=== PATIENT | male | born 1965 | race Two or more races ===

== ENCOUNTER 2023-03-11 23:23 | Emergency (ER) | payer MEDICAID, SELFPAY ==
[2023-03-11 23:27] VITALS: BP 110/85; PULSE 87; RESP 17; TEMP 36.9; O2SAT 95; BMI 54.6
--- NOTE | 2023-03-11 23:50 | ED.EXTPRO1 ---
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 The patient is on Lasix and lisinopril with HCTZ. He states that he was on an antibiotic approximately one month ago for cellulitis of the lower extremities. He states that he spends approximately 8 hours a day driving and his legs continued to swell while he is driving. He has limited time to elevate his legs and rest. He states that when he left home 5 days ago his legs were normal but have now been increasingly swollen with the drainage and serosanguineous weeping from his left leg. He denies any fever. He has no chest pain or shortness of breath. He has not had any recent injury. He does have a healed fasciotomy scar on the right lower leg after having compartment syndrome in the past. Related Data Home Medications Medication Instructions Recorded Confirmed furosemide 20 mg tablet (Lasix) 20 mg PO BID 03/11/23 03/11/23 lisinopril 20 mg tablet 20 mg PO DAILY 03/11/23 03/11/23 metformin 500 mg tablet 500 mg PO BID 03/11/23 03/11/23 Allergies Allergy/AdvReac Type Severity Reaction Status Date / Time No Known Drug Allergies Allergy Verified 03/11/23 23:33 Review of Systems ROS Status of ROS 10 or more systems reviewed and unremarkable except as noted in history and below PFSH PFS Social History Smoking status: Current every day smoker Exam Narrative Exam Narrative: Nurses note and vital signs reviewed and patient is not hypoxic. General: Non toxic, morbidly obese adult male, no resp distress Skin: Warm, dry, no pallor noted. see description of lower ext in musculoskeletal section Head: Normocephalic, atraumatic Eye: Normal conjunctiva, no drainage, EOMI. PERRL Ears, Nose, Mouth, and Throat: oral mucosa is moist. Cardiovascular: Regular Rate and Rhythm S1S2, no murmurs, rubs or gallops Respiratory: Patient is in no distress, no accessory muscle use, faint expiratory wheezing bilaterally Back: non-tender, no CVA tenderness bilaterally to percussion. GI: Normal bowel sounds, no tenderness to palpation, no masses appreciated. No rebound, guarding, or rigidity noted. Musculoskeletal: There are chronic hypertrophic skin changes on both lower extremities from the knees to the toes, both legs are markedly edematous and tense, there is approximately 6 x 6 area of open tripathi colored skin on the lateral aspect of the left lower leg with serosanguineous drainage. There is also tender to palpation. Feet are warm and sensate. Neurological: A&O x4, normal speech Psychiatric: Cooperative Constitutional Vital Signs, click to edit/add: Last Vital Signs Temp 98.4 F 03/11/23 23:27 Pulse 87 03/11/23 23:27 Resp 17 03/11/23 23:27 BP 110/85 03/11/23 23:58 Pulse Ox 95 03/11/23 23:27 O2 Del Method Room Air 03/11/23 23:27 Course Vital Signs Vital signs: Vital Signs Temperature 98.4 F 03/11/23 23:27 Pulse Rate 87 03/11/23 23:27 Respiratory Rate 17 03/11/23 23:27 Blood Pressure 110/85 03/11/23 23:27 Pulse Oximetry 95 03/11/23 23:27 Oxygen Delivery Method Room Air 03/11/23 23:27 Temperature 98.4 F 03/11/23 23:27 Pulse Rate 87 03/11/23 23:27 Respiratory Rate 17 03/11/23 23:27 Blood Pressure 110/85 03/11/23 23:58 Pulse Oximetry 95 03/11/23 23:27 Oxygen Delivery Method Room Air 03/11/23 23:27 MDM - Extremity (Nontraumatic) MDM Narrative Medical decision making narrative: 57-year-old male with a history of chronic peripheral edema with chronic skin changes presents for evaluation of increasing edema and serosanguineous drainage from an area of open skin on the left lower leg. He has not had a fever. He states that he gets cellulitis frequently and his last round of antibiotics approximately one month ago. He lives in [place] and is a national dedicated truck driver traveling through [place]. He is not having any chest pain or shortness of breath. He states that his legs are more swollen than normal because he sits in his truck and does not get to elevate them. An IV was placed and he was medicated with IV Lasix and 3 g of IV Unasyn. Routine labs are reviewed.He has elevated inflammatory markers both CRP and ESR. His white count is no minimally elevated at 12.3. His glucose is minimally elevated at 144.BUN/creatinine are normal. On reevaluation he has found asleep and is comfortable. He wishes to be discharged home with a prescription for antibiotics however he is unable to stop at a pharmacy until [place] and request 2 tablets to take until he can stop at a pharmacy. He'll be given 2 doses of Augmentin at the time of discharge and prescription for Augmentin 875 to use for the next and I suggested increasing his Lasix to 60 mg daily. He is in agreement with this plan. His legs were wrapped for comfort and compression by the nursing staff. He remains hemodynamically stable in the ED. Lab Data Labs: Lab Results 03/11/23 Range/Units 00:00 WBC 12.3 H (4.0-11.0) 10^3/uL RBC 5.17 (4.70-6.10) 10^6/uL Hgb 15.9 (14.0-18.0) g/dL Hct 48.9 (42.0-54.0) % MCV 94.6 H (80.0-94.0) fL MCH 30.8 (25.9-34.0) pg MCHC 32.5 (29.9-35.2) g/dL RDW 14.5 (11.0-15.0) % Plt Count 247 (150-450) 10^3/uL MPV 8.9 L (9.5-13.5) fL Neut % (Auto) 53.0 (43.0-75.0) % Lymph % (Auto) 31.9 (20.5-60.0) % [place] % (Auto) 10.6 (1.7-12.0) % Eos % (Auto) 3.7 (0.9-7.0) % Baso % (Auto) 0.6 (0.2-2.0) % Neut # (Auto) 6.5 (1.4-6.5) 10^3/uL Lymph # (Auto) 3.9 H (1.2-3.8) 10^3/uL [place] # (Auto) 1.3 H (0.3-0.8) 10^3/uL Eos # (Auto) 0.5 (0.0-0.7) 10^3/uL Baso # (Auto) 0.1 (0.0-0.1) 10^3/uL Abs Immat Gran (auto) 0.03 (0.00-0.03) 10^3/uL Imm/Tot Granulo (auto) 0.2 (0.0-0.5) % ESR 72 H (<=20) mm/hr Sodium 136 (136-145) mmol/L Potassium 3.8 (3.5-5.1) mmol/L Chloride 100 (98-107) mmol/L Carbon Dioxide 31.6 (21.0-32.0) mmol/L Anion Gap 8.2 BUN 22.0 H (7.0-18.0) mg/dL Creatinine 1.07 (0.70-1.30) mg/dL Est GFR ( Amer) >60 (>=60) Est GFR (Non-Af Amer) >60 (>=60) BUN/Creatinine Ratio 20.6 Glucose 144 H (74-106) mg/dL Lactate 1.3 (0.4-2.0) mmol/L Calcium 9.5 (8.5-10.1) mg/dL Total Bilirubin 0.5 (0.2-1.0) mg/dL AST 9 L (15-37) U/L ALT 15 L (16-63) U/L Alkaline Phosphatase 78 (46-116) U/L C-Reactive Protein 4.8 H (<=1.0) mg/dL Total Protein 8.2 (6.4-8.2) g/dL Albumin 3.2 L (3.4-5.0) g/dL Globulin 5.0 g/dL Albumin/Globulin Ratio 0.6 Discharge Plan Discharge Chief Complaint: Extremity Problem, Nontraumatic Clinical Impression: Cellulitis, Lower extremity edema Patient Disposition: Home, Self-Care Time of Disposition Decision: 01:27 Condition: Good Prescriptions / Home Meds: No Action metformin 500 mg tablet 500 mg PO BID furosemide [Lasix] 20 mg tablet 20 mg PO BID lisinopril 20 mg tablet 20 mg PO DAILY Instructions: Cellulitis (ED), Leg Edema (ED) Stand Alone Forms: Portal Instructions Referrals: Physician,Non-Staff, MD [Primary Care Provider] - 1 week
[2023-03-11 23:58] VITALS: BP 110/85
[2023-03-11] MEDS: AMPICILLIN SODIUM/SULBACTAM NA 3 GM in 0.9 % SODIUM CHLORIDE 100 ML IV (23:58)
[2023-03-11] MEDS: FUROSEMIDE 40 MG/4 ML VIAL IVP (23:58)
[2023-03-12 00:08] LABS: Basophils Absolute Auto 0.1 10^3/uL (0.0-0.1); Basophils Percent Auto 0.6 % (0.2-2.0); Eosinophils Absolute Auto 0.5 10^3/uL (0.0-0.7); Eosinophils Percent Auto 3.7 % (0.9-7.0); Hematocrit 48.9 % (42.0-54.0); Hemoglobin 15.9 g/dL (14.0-18.0); Immature Granulocytes Abs Auto 0.03 10^3/uL (0.00-0.03); Immature Granulocytes Pct Auto 0.2 % (0.0-0.5); Lymphocytes Absolute Auto 3.9 10^3/uL (1.2-3.8); Lymphocytes Percent Auto 31.9 % (20.5-60.0); Mean Corpuscular HGB Conc 32.5 g/dL (29.9-35.2); Mean Corpuscular Hemoglobin 30.8 pg (25.9-34.0); Mean Corpuscular Volume 94.6 fL (80.0-94.0); Mean Platelet Volume 8.9 fL (9.5-13.5); Monocytes Absolute Auto 1.3 10^3/uL (0.3-0.8); Monocytes Percent Auto 10.6 % (1.7-12.0); Neutrophils Absolute Auto 6.5 10^3/uL (1.4-6.5); Platelet Count 247 10^3/uL (150-450); Red Blood Count 5.17 10^6/uL (4.70-6.10); Red Cell Distribution Width 14.5 % (11.0-15.0); White Blood Count 12.3 10^3/uL (4.0-11.0)
[2023-03-12 00:29] LABS: Erythrocyte Sedimentation Rate 72 mm/hr (<=20)
[2023-03-12 00:32] LABS: Alanine Aminotransferase 15 U/L (16-63); Albumin Globulin Ratio 0.6; Albumin Level 3.2 g/dL (3.4-5.0); Alkaline Phosphatase 78 U/L (46-116); Anion Gap 8.2; Aspartate Amino Transferase 9 U/L (15-37); BUN Creatinine Ratio 20.6; Bilirubin Total 0.5 mg/dL (0.2-1.0); C Reactive Protein 4.8 mg/dL (<=1.0); Calcium 9.5 mg/dL (8.5-10.1); Carbon Dioxide 31.6 mmol/L (21.0-32.0); Chloride 100 mmol/L (98-107); Estimated GFR (African America >60 (>=60); Estimated GFR (Non-African Ame >60 (>=60); Glucose 144 mg/dL (74-106); Potassium 3.8 mmol/L (3.5-5.1); Sodium 136 mmol/L (136-145); Total Protein 8.2 g/dL (6.4-8.2)
[2023-03-12 00:35] LABS: Lactate/Lactic Acid 1.3 mmol/L (0.4-2.0)
[2023-03-12 01:38] VITALS: BP 104/65; PULSE 89; RESP 18; O2SAT 95
[2023-03-12] MEDS: AMOXICILLIN/POTASSIUM CLAV 1 TAB TABLET 2 TAB PO (01:45)
== END 2023-03-12 02:25 | disposition home or self-care (01) ==
PROVIDERS: Emergency Provider Emergency Medicine
DX: L03.119 Cellulitis of unspecified part of limb (principal); R60.9 Edema, unspecified; Z79.899 Other long term (current) drug therapy; Z79.84 Long term (current) use of oral hypoglycemic drugs; F17.210 Nicotine dependence, cigarettes, uncomplicated; E66.01 Morbid (severe) obesity due to excess calories; Z68.43 Body mass index [BMI] 50.0-59.9, adult
CPT/HCPCS: 36415; 80053; 83605; 85025; 85652; 86140; 87040; 96365; 96375; 99284